=== PATIENT | female | born 1960 | race Caucasian/White ===

== ENCOUNTER 2016-06-29 18:03 | Emergency (ER) | payer OTHER ==
[2016-06-29 18:12] VITALS: BP 133/84
--- NOTE | 2016-06-29 18:20 | ERNOTE ---
ENT HPI Date of Service: 06/29/16 Presenting Symptoms: other - Ear pain Time Seen by Provider: 06/29/16 18:18 Source: patient, RN notes reviewed Exam Limitations: no limitations - Immun/Allergies/Home Medications Immunizations: IMMUNIZATION HX Immunizations Up to Date Yes Allergies/Adverse Reactions: Allergies Allergy/AdvReac Type Severity Reaction Status Date / Time Sulfa (Sulfonamide AdvReac Intermediate Other Verified 06/29/16 18:12 Antibiotics) Home Medications: HOME MEDICATIONS Amoxicillin 875 mg PO BID #20 tablet 06/29/16 [Last Taken Unknown] - History of Present Illness Narrative: 55 y/o female ambulatory to the ED for left ear pain that began earlier this afternoon. She denies any associated symptoms. She has not attempted to take anything for pain. ENT Location: Present: ear (L) Prearrival Treatment: Present: no prearrival treatment Prior Treament: Reports: similar symptoms before. Denies: recently seen Review of Systems - Review of Systems Constitutional: Present: malaise. Absent: fever, chills EYE: Present: no symptoms reported ENT: Present: ear pain. Absent: ear discharge, nose congestion, nasal drainage , sore throat Respiratory: Absent: shortness of breath, cough Cardiology: Present: no symptoms reported Gastrointestinal/Abdominal: Absent: nausea, vomiting Genitourinary: Present: no symptoms reported Musculoskeletal: Absent: muscle pain, neck pain Skin: Absent: rash, lesions Neurological: Absent: headache, dizziness/light-headedness Endocrine: Present: no symptoms reported Hematologic/Lymphatic: Present: no symptoms reported Psych: Present: no symptoms reported - Patient's Past Medical History Patient History - Medical: UTI'S Patient History - Cardiac/Respiratory: No pertinent hx Patient History - Cancer: Cervical, Skin Patient History - Surgical Procedures: Cholecystectomy, Hysterectomy, T & A Patient History - Other: None - Social History Living Situations: home Psych History: No pertinent hx Smoking Status: Former smoker Alcohol Use: none Drug Use: none - Immunizations Immunizations Up to Date: Yes Physical Exam - Physical Exam General Appearance: Present: wd/wn, alert, other - noted to be uncomfortable Eye Exam: Normal inspection: bilateral Ears, Nose, Throat: Present: abnormal TM (L) - bulging, middle ear fluid present. Absent: hearing decreased, abnormal TM (R), nasal congestion, sinus pain/drainage, pharyngeal erythema Neck: Present: normal inspection, nontender, supple. Absent: lymphadenopathy (R ), lymphadenopathy (L) Respiratory: Present: no respiratory distress, normal breath sounds, no accessory muscle use, lungs clear Cardiovascular/Chest: Present: regular rate, rhythm, no murmur Neurological Exam: Present: alert, oriented, normal mood/affect, no motor/ sensory deficits Skin Exam: Present: normal color, warm/dry ED Progress - Vital Signs Patient's Vital Signs:: I have reviewed the patient's vital signs. Vital Signs: Vital Signs 06/29/16 18:05 Temperature 36.8 C Pulse Rate 92 Respiratory 18 Rate Blood Pressure 133/84 O2 Sat by Pulse 97 Oximetry - Progress/Reassessment Chief Complaint: Earache Progress:: Improved Departure Clinical Impression: Otitis media of left ear Qualifiers: Otitis media type: suppurative Chronicity: acute Recurrence: not specified as recurrent Spontaneous tympanic membrane rupture: without spontaneous rupture Qualified Code(s): H66.002 - Acute suppurative otitis media without spontaneous rupture of ear drum, left ear - Departure Disposition: Home self-care Condition: Good Instructions: Otitis Media, Adult, [id number] Additional Instructions: Tylenol and/or ibuprofen for pain Follow up with your doctor if symptoms persist Referrals: Maria Del Carmen Aguilera DO [Primary Care Provider] - Prescriptions: Amoxicillin 875 mg PO BID #20 tablet
[2016-06-29] MEDS ORDERED: KETOROLAC TROMETHAMINE 60 MG/2 ML VIAL IM ONE ×2 (18:33→18:36)
[2016-06-29] MEDS ORDERED: AMOXICILLIN TRIHYDRATE 250 MG CAPSULE PO ONE (18:33)
[2016-06-29] MEDS ORDERED: AMOXICILLIN TRIHYDRATE 250 MG CAPSULE ONE (18:37)
--- OUTSIDE RECORDS SUMMARY | 2016-06-29 19:05 | XMS REPORT | Continuity of Care Document ---
:1960 Author Organization [facility] ([facility]) Address [address] [place] [address] Phone [phone] Care Team Providers Name Role Phone Maria Del Carmen Aguilera Primary Care Provider [phone] Source Comments This disclosure is being made pursuant to the Care Everywhere program, applicable federal and state laws, and may not contain all informaitonavailable regarding this patient.[facility] ([facility]) Active Allergies and Adverse Reactions Allergen Noted Date Severity Reactions Comments Sulfa (Sulfonamide Antibiotics) 06/11/2016 Urticaria (Hives) Current Medications No known medications Active Problems Not on file Most Recent Encounters Date Type Specialty Providers Description 06/28/2016 Hospital Encounter Radiology Chief Comp: Patient Reported Reason For Visit 06/28/2016 Hospital Encounter Radiology Zoraida Trejo MD Dx: Neuropathy Marin Hawkins MD 06/11/2016 Hospital Encounter Radiology Zoraida Trejo MD Chief Comp: Patient Reported Reason For Visit 06/11/2016 Office Visit Neurology Micha Wills MD Dx: B12 deficiency (Primary Dx) Social History Tobacco Use Types Packs/Day Years Used Date Former Smoker Cigarettes Quit: 04/15/1982 Smokeless Tobacco: Never Used Tobacco Cessation:Counseling Given: Yes Comments: Alcohol Use Drinks/Week oz/Week Comments Yes 2 drinks in past 8 months Last Filed Vital Signs Vital Sign Reading Time Taken Blood Pressure 136/77 06/11/2016 12:41 PM PHLEBOTOMY SERVICES TECHNICIAN Pulse 86 06/11/2016 12:41 PM PHLEBOTOMY SERVICES TECHNICIAN Temperature - - Respiratory Rate - - Height 1.626 m (5' 4.02") 06/11/2016 12:41 PM PHLEBOTOMY SERVICES TECHNICIAN Weight 77.7 kg (171 lb 4.8 oz) 06/11/2016 12:41 PM PHLEBOTOMY SERVICES TECHNICIAN Body Mass Index 29.39 06/11/2016 12:41 PM PHLEBOTOMY SERVICES TECHNICIAN Oxygen Saturation 99% 06/11/2016 12:41 PM PHLEBOTOMY SERVICES TECHNICIAN Plan of Care Health Maintenance Due Date Last Done Comments HCV Screening 1960 Hepatitis B Vaccine (1 of 3 - Primary Series) 1962 Tdap Vaccine 1973 Lipid Disorder Screening 1980 MMR Vaccine 1980 Td Vaccine 1980 Cervical Cancer Screening 1992 Mammogram 2002 Colonoscopy 07/12/2012 Influenza Vaccine: Seasonal (#1) 11/14/2015 Results from Last 3 Months MRI SPINE CERVICAL WO CONTRAST ([id number]) (06/28/2016 11:17 AM) Impressions Impression: Mild multilevel degenerative change, most prominent at C6-C7. Narrative Procedure: MRI SPINE CERVICAL WO CONTRAST ([id number]) Indication: History of injury, evaluate for cervical spine stenosis Technique: Multisequence, multiplanar MRI of the cervical spine without IV contrast. Exam was performed using a degenerative joint disease protocol. Comparison: None. Findings: Postsurgical change of anterior spinal fusion at C4-C6. There is normal alignment without evidence of acute fracture or dislocation. Vertebral body heights are well-maintained. Visualized cord is within normal limits. Normal marrow signal. Prevertebral soft tissues are unremarkable. Grossly normal thyroid. Individual disc levels are as follows: C2-C3: No significant disc disease or stenosis. C3-C4: Small posterior disc bulge, without significant central canal stenosis. C4-C5: No significant disc disease or stenosis. C5-C6: No significant disc disease or stenosis. Incidental note of perineural cysts at the bilateral neural foramina. C6-C7: Broad-based posterior disc bulge causing indentation of the thecal sac and mild central canal stenosis. Incidental note of a 4 mm right perineural cyst. C7-T1: No significant disc disease or stenosis. Procedure Note Nicolas, Incoming Imaging Results - SatJun 29, 2016 9:01 AM CDT Procedure: MRI SPINE CERVICAL WO CONTRAST ([id number]) Indication: History of injury, evaluate for cervical spine stenosis Technique: Multisequence, multiplanar MRI of the cervical spine without IV contrast. Exam was performed using a degenerative joint disease protocol. Comparison: None. Findings: Postsurgical change of anterior spinal fusion at C4-C6. There is normal alignment without evidence of acute fracture or dislocation. Vertebral body heights are well-maintained. Visualized cord is within normal limits. Normal marrow signal. Prevertebral soft tissues are unremarkable. Grossly normal thyroid. Individual disc levels are as follows: C2-C3: No significant disc disease or stenosis. C3-C4: Small posterior disc bulge, without significant central canal stenosis. C4-C5: No significant disc disease or stenosis. C5-C6: No significant disc disease or stenosis. Incidental note of perineural cysts at the bilateral neural foramina. C6-C7: Broad-based posterior disc bulge causing indentation of the thecal sac and mild central canal stenosis. Incidental note of a 4 mm right perineural cyst. C7-T1: No significant disc disease or stenosis. IMPRESSION Impression: Mild multilevel degenerative change, most prominent at C6-C7. TOTAL PROTEIN (06/11/2016 2:30 PM) Component Value Range Total Protein 7.4 6.0-8.0 g/dL Specimen Blood SERUM PROTEIN ELECTROPHORESIS (06/11/2016 2:30 PM) Component Value Range SPEP-Total Protein 7.4 6.0-8.0 g/dL SPEP-Albumin 4.3 3.7-5.0 g/dL SPEP-Alpha1 Fraction 0.3 0.3-0.5 g/dL SPEP-Alpha2 Fraction 0.8(H) 0.4-0.6 g/dL SPEP-Beta1 Fraction 0.5 g/dL SPEP-Beta2 Fraction 0.4 g/dL SPEP-Beta Fraction Total 0.9 0.6-0.9 g/dL SPEP-Gamma Fraction 1.2 0.5-1.3 g/dL SPEP-Monoclonal Protein 0.0 g/dL SPEP-Path Interp See TextComment: A monoclonal protein is not identified by serum protein electrophoresis. Domonique Zuñiga M.D., R1 Pathology Resident I have personally reviewed the patient studies and I agree with the above report. Maninder Brewer M.D, Ph.D., Electronics Scale Tester, Clinical Chemistry Laboratory, [facility] Questions can be directed to the Pathology Chemistry resident (pager #[phone]) Specimen Blood HEMOGLOBIN A1C (06/11/2016 2:30 PM) Component Value Range Hemoglobin A1c 5.3Comment: 4.8-6.0 % Glycemic Control Guidelines: Non-diabetic <6% Goal <7% Therapeutic Action >8% Estimated Average Glucose 105Comment: mg/dL The estimated average glucose (eAG) calculated from the HbA1c changed on 02/12.See Laboratory Bulletins in the Department of Pathology Laboratory Services Handbook for a full discussion.Not e that the new calculated glucose will now be lower.The A1c result is unchanged. Specimen Whole Blood THYROID STIMULATING HORMONE (TSH), WITH REFLEX FREE T-4 (06/11/2016 2:30 PM) Component Value Range TSH, Reflex 0.95 0.27-4.20 IU/mL Specimen Blood VITAMIN B12 (06/11/2016 2:30 PM) Component Value Range Vitamin B12 458Comment: 211-946 pg/mL New analytical immunoassay with different reference range instituted 03/10/2013 AT 830AM Normal 211 - 946 pg/mL [id number] - 210 pg/mL Deficient<150pg/mL Specimen Blood EXTERNAL MRI - STORE ONLY (06/11/2016 1:42 PM)
== END 2016-06-29 18:42 | disposition home or self-care (01) ==
LOC: ER 18:03
DX: H66.002 Acute suppurative otitis media without spontaneous rupture of ear drum, left ear (principal); Z85.828 Personal history of other malignant neoplasm of skin; Z85.41 Personal history of malignant neoplasm of cervix uteri

== ENCOUNTER 2016-09-11 10:05 | Observation (INO) | payer OTHER ==
--- NOTE | 2016-09-11 10:30 | ERNOTE ---
Chest Pain/Cardiac HPI Chief Complaint: Chest Pain Source: patient Exam Limitations: no limitations Immunizations: IMMUNIZATION HX Immunizations Up to Date Yes Allergies/Adverse Reactions: Allergies Sulfa (Sulfonamide Antibiotics) Adverse Reaction (Intermediate, Verified 13:28) Other eyes red Home Medications: HOME MEDICATIONS NK [No Home Medication] 09/11/16 [Last Taken Unknown] Narrative: Patient has had intermittent chest pain on and off for about two weeks. The pain is central with no clear correlation to activity, gets worse at night. She usually gets a headache after the chest pain resolved. She had an ablation for SVTs three years ago, doesn't think she had an angiogram before. She has a strong family history of cardiac disease. Her father age 51 from a massive NE, siblings started to have heart disease in their 40's Timing: intermittent Severity/Quality: mild, sharp Location: central Chest Pain Radiation: no radiation Activities at Onset: none Modifying Factors - Improves: Present: nothing Modifying Factors - Worsens: Present: nothing Nitro Today/Relief: no nitro taken today Aspirin Treatment Today: no aspirin today Review of Systems - Review of Systems Constitutional: Absent: recent illness, fever, chills EYE: Absent: double vision ENT: Absent: sore throat Respiratory: Absent: shortness of breath, cough Cardiology: Present: See HPI Gastrointestinal/Abdominal: Absent: nausea, vomiting, abdominal pain Genitourinary: Present: no symptoms reported Neurological: Present: See HPI, headache - Patient's Past Medical History Patient History - Medical: UTI'S Patient History - Cardiac/Respiratory: No pertinent hx Patient History - Cancer: Cervical, Chemotherapy history, Skin, Surgical Treatment Patient History - Surgical Procedures: Cholecystectomy, Hysterectomy, T & A, Other Patient History - Other: None - Family History Mother Family History - Medical: Family History - Cardiac/Respiratory: Aneurysm Family History - Cancer: Pancreatic Father Family History - Medical: Family History - Cardiac/Respiratory: Myocardial Infarction Sister Family History - Cancer: Cervical, Colon, Thyroid - Social History Living Situations: home Psych History: No pertinent hx Alcohol Use: none Drug Use: none - Immunizations Immunizations Up to Date: Yes Physical Exam - Physical Exam General Appearance: Present: wd/wn, alert, no apparent distress, anxious Respiratory: Present: no respiratory distress, normal breath sounds, no accessory muscle use, chest tenderness - parasternal bilateral Cardiovascular/Chest: Present: regular rate, rhythm, no murmur Gastrointestinal/Abdominal: Present: normal bowel sounds, nontender, nondistended, soft Extremity Exam: Present: no edema Neurological Exam: Present: alert, oriented, normal mood/affect Skin Exam: Present: normal color, warm/dry ED Progress - Results and Orders Patient's Lab Results:: I have reviewed the patient's lab results. - Vital Signs Patient's Vital Signs:: I have reviewed the patient's vital signs. Vital Signs: Vital Signs 09/11/16 09/11/16 10:21 10:25 Temperature 36.4 C L Pulse Rate 75 81 Respiratory 15 Rate Blood Pressure 132/65 - EKG EKG: NSR, other - no acute changes EKG read: Interp. by me - X-Ray X-Ray #1 X-Ray: chest - no acute changes Interpretation: Reviewed by me - Progress/Reassessment Chief Complaint: Chest Pain Progress Note-Subjective: 09/11/16 11:41 pain briefly better after nitro, getting worse again, headache worse after nitrp explained test results and limits of test to rule out significant CAD 09/11/16 12:55 patient still gets intermittent pain without any clear correlation, pains seem rather atypical, agrees to get admitted 09/11/16 13:[address] Johnston, jinaay to admit for observation Departure - Departure Clinical Impression: Chest pain Qualifiers: Chest pain type: unspecified Qualified Code(s): R07.9 - Chest pain, unspecified Disposition: [facility] Condition: Good
[2016-09-11] MEDS ORDERED: ACETAMINOPHEN 325 MG TABLET PO ONE (10:41)
[2016-09-11] MEDS ORDERED: ASPIRIN 81 MG TAB.CHEW PO ONE (10:41)
[2016-09-11] MEDS ORDERED: NITROGLYCERIN 0.4 MG/TAB BTL SL ONE ×2 (10:41→11:28)
[2016-09-11 10:43] LABS: Hematocrit 39.4 % (37.0-47.0); Hemoglobin 13.5 gm/dL (12.5-16.0); Mean Cell Volume 88.5 fl (78-100); Mean Corpuscular Hemoglobin 30.3 pg (27-31); Mean Corpuscular Hgb Conc 34.3 g/dl (32-36); Mean Platelet Volume 9.5 fl (6.0-9.5); Neutrophil # 2.4 K/mm3 (1.3-6.0); Neutrophil % 48.7 % (42-75.0); Platelet Count 313 K/mm3 (150-450); Red Blood Count 4.45 M/mm3 (4.2-5.4); White Blood Count 4.9 K/mm3 (4.0-10.5)
[2016-09-11] MEDS ORDERED: ACETAMINOPHEN 325 MG TABLET ONE (10:46)
[2016-09-11] MEDS ORDERED: ASPIRIN 81 MG TAB.CHEW ONE (10:46)
[2016-09-11 10:55] LABS: INR 1.01 INR (0.90-1.10); Partial Thrombolplastin Time 30.3 Seconds (24-32); Prothrombin Time (Patient) 10.5 Seconds (9.4-11.4)
[2016-09-11 11:01] LABS: ALT 19 U/L (19-67); AST 18 U/L (0-48); Albumin * 3.6 gm/dl (3.4-5.0); Alkaline Phosphatase * 73 U/L (50-170); Anion Gap 14.1 mmol/L (6.8-13.8); BUN/Creatinine Ratio 9.3 (9.0-21.6); Bilirubin, Total 0.3 mg/dL (0.0-1.1); Blood Urea Nitrogen 8 mg/dL (3-23); Ca. Corrected For Albumin 8.9 mg/dL (8.4-10.2); Calcium * 8.9 mg/dL (7.9-10.9); Carbon Dioxide 26.5 mmol/L (24-32.6); Chloride 106 mmol/L (97-106); Glucose * 104 mg/dL (70-110); Potassium 3.6 mmol/L (3.4-4.6); Sodium 143 mmol/L (132-142); Total Protein 7.4 gm/dL (6.2-8.2); Troponin I Less than 0.017 ng/ml (0.00-0.10)
--- OUTSIDE RECORDS SUMMARY | 2016-09-11 11:30 | XMS REPORT | Continuity of Care Document ---
:1960 Author Organization [facility] ([facility]) Address [address] [place] [address] Phone [phone] Care Team Providers Name Role Phone Maria Del Carmen Aguilera Primary Care Provider [phone] Source Comments This disclosure is being made pursuant to the Care Everywhere program, applicable federal and state laws, and may not contain all informaitonavailable regarding this patient.[facility] ([facility]) Active Allergies and Adverse Reactions Allergen Noted Date Severity Reactions Comments Sulfa (Sulfonamide Antibiotics) 06/11/2016 Urticaria (Hives) Current Medications No known medications Active Problems Not on file Most Recent Encounters Date Type Specialty Providers Description 08/02/2016 Hospital Encounter Neurology Bhavesh Manzanares, PhD Chief Comp: Patient Reported Reason For Visit 06/28/2016 Hospital Encounter Radiology Chief Comp: Patient Reported Reason For Visit 06/28/2016 Hospital Encounter Radiology Zoraida Trejo MD Dx: Neuropathy Marin Hawkins MD Social History Tobacco Use Types Packs/Day Years Used Date Former Smoker Cigarettes Quit: 04/15/1982 Smokeless Tobacco: Never Used Tobacco Cessation:Counseling Given: Yes Comments: Alcohol Use Drinks/Week oz/Week Comments Yes 2 drinks in past 8 months Last Filed Vital Signs Vital Sign Reading Time Taken Blood Pressure 136/77 06/11/2016 12:41 PM SALES FLOOR ASSOCIATE Pulse 86 06/11/2016 12:41 PM SALES FLOOR ASSOCIATE Temperature - - Respiratory Rate - - Height 1.626 m (5' 4.02") 06/11/2016 12:41 PM SALES FLOOR ASSOCIATE Weight 77.7 kg (171 lb 4.8 oz) 06/11/2016 12:41 PM SALES FLOOR ASSOCIATE Body Mass Index 29.39 06/11/2016 12:41 PM SALES FLOOR ASSOCIATE Oxygen Saturation 99% 06/11/2016 12:41 PM SALES FLOOR ASSOCIATE Plan of Care Date Type Specialty Providers Description 09/18/2016 Appointment Neurology Micha Wills MD Chief Comp: Patient [address] [place] [address] [phone] (Fax) Health Maintenance Due Date Last Done Comments HCV Screening 1960 Hepatitis B Vaccine (1 of 3 - Primary Series) 1962 Tdap Vaccine 1973 Lipid Disorder Screening 1980 MMR Vaccine 1980 Td Vaccine 1980 Cervical Cancer Screening 1992 Mammogram 2002 Colonoscopy 07/12/2012 Influenza Vaccine: Seasonal (Season Ended) 2016 Results from Last 3 Months MRI SPINE CERVICAL WO CONTRAST ([id number]) (06/28/2016 11:17 AM) Impressions Impression: Mild multilevel degenerative change, most prominent at C6-C7. Narrative Procedure: MRI SPINE CERVICAL WO CONTRAST ([id number]) Indication: History of injury, evaluate for cervical [...] CDT Procedure: MRI SPINE CERVICAL WO CONTRAST ([id number]) Indication: History of injury, evaluate for cervical [...]
[2016-09-11] MEDS ORDERED: MORPHINE SULFATE 4 MG/ML SYRG IV ONE (11:40)
[2016-09-11] MEDS ORDERED: ONDANSETRON HCL/PF 2 MG/ML VIAL IV ONE (11:40)
[2016-09-11] MEDS ORDERED: MORPHINE SULFATE 4 MG/ML SYRG ONE (11:42)
[2016-09-11] MEDS ORDERED: ONDANSETRON HCL/PF 2 MG/ML VIAL ONE (11:42)
--- OUTSIDE RECORDS SUMMARY | 2016-09-11 13:13 | XMS REPORT | Continuity of Care Document ---
:1960 Author Organization [facility] ([facility]) Address [address] [place] [address] Phone [phone] Care Team Providers Name Role Phone Maria Del Carmen Aguilera Primary Care Provider [phone] Source Comments This disclosure is being made pursuant to the Care Everywhere program, applicable federal and state laws, and may not contain all informaitonavailable regarding this patient.[facility] ([facility]) Active Allergies and Adverse Reactions Allergen Noted Date Severity Reactions Comments Sulfa (Sulfonamide Antibiotics) 06/11/2016 Urticaria (Hives) Current Medications No known medications Active Problems Not on file Most Recent Encounters Date Type Specialty Providers Description 08/02/2016 Hospital Encounter Neurology Bhavesh Mnazanares, PhD Chief Comp: Patient Reported Reason For [...] Taken Blood Pressure 136/77 06/11/2016 12:41 PM CRITICAL SYSTEMS TECHNICIAN Pulse 86 06/11/2016 12:41 PM CRITICAL SYSTEMS TECHNICIAN Temperature - - Respiratory Rate - - Height 1.626 m (5' 4.02") 06/11/2016 12:41 PM CRITICAL SYSTEMS TECHNICIAN Weight 77.7 kg (171 lb 4.8 oz) 06/11/2016 12:41 PM CRITICAL SYSTEMS TECHNICIAN Body Mass Index 29.39 06/11/2016 12:41 PM CRITICAL SYSTEMS TECHNICIAN Oxygen Saturation 99% 06/11/2016 12:41 PM CRITICAL SYSTEMS TECHNICIAN Plan of Care Date Type Specialty Providers Description 09/18/2016 Appointment Neurology Micha Wills MD Chief Comp: Patient [address] Reported Reason For [place] [address] [phone] (Fax) Health Maintenance Due Date Last Done Comments HCV Screening 1960 Hepatitis B Vaccine (1 of 3 - Primary Series) 1962 Tdap Vaccine 1973 Lipid Disorder Screening 1980 MMR Vaccine 1980 Td Vaccine 1980 Cervical Cancer Screening 1992 Mammogram 2002 Colonoscopy 07/12/2012 Influenza Vaccine: Seasonal (Season Ended) 2016 Results from Last 3 Months MRI SPINE CERVICAL WO CONTRAST ([id number]) (06/28/2016 11:17 AM) Impressions Impression: Mild multilevel degenerative change, most prominent at C6-C7. Narrative Procedure: MRI SPINE CERVICAL WO CONTRAST ([id number]) Indication: History of injury, evaluate for cervical [...] CDT Procedure: MRI SPINE CERVICAL WO CONTRAST ([id number]) Indication: History of injury, evaluate for cervical [...]
[2016-09-11] MEDS ORDERED: ATORVASTATIN CALCIUM 40 MG TABLET ONE (13:14)
[2016-09-11] MEDS ORDERED: ATORVASTATIN CALCIUM 40 MG TABLET PO STA (13:14)
[2016-09-11] MEDS: ACETAMINOPHEN 325 MG TABLET PO PRN ×2 (14:46→21:13)
[2016-09-11 15:24] LABS: CK Total * 78 U/L (0-259); CKMB 0.5 ng/mL (0.0-9.0); Troponin I Less than 0.017 ng/ml (0.00-0.10)
--- NOTE | 2016-09-11 15:43 | HP ---
Chief Complaint - Chief Complaint Date of Service: 09/11/16 Time of Service: 14:30 Chief Complaint: Chest pain, unable to sleep secondary to worsening of chronic pain History of Present Illness: The patient is a 56-year-old female who presented to the emergency department with complaints of chest pain, worsening chronic pain in multiple joints and in her back and inability to sleep secondary to the pain. The patient states that her joint pain and back pain is the same as it always is other than it just feels like it's a little bit worse than baseline. The patient states she has been having intermittent chest pain for the past few weeks. She states the pain is actually worse at rest and she really only notices the chest pain at night when she is laying in bed. She denies any associated nausea or vomiting. She does admit to feeling hot and sweaty when she has the chest pain. She also admits to having the sensation of heartburn with the chest pain however she states that she does not think the chest pain is from her burn. The patient has a long-standing history of chronic pain which is likely myofascial in origin. She also has a history of headaches and is following with neurology and she actually states that she is scheduled to see them next week. The patient states that she had an ablation procedure for SVT in September 2013 and she is worried that it may be something related to dizziness that is causing the chest pain. - Patient's Past Medical History Patient History - Medical: Dementia, UTI'S Patient History - Cardiac/Respiratory: Other Patient History - Cancer: Brain, Cervical, Chemotherapy history, Skin, Surgical Treatment Patient History - Surgical Procedures: Cholecystectomy, Hysterectomy, T & A, Other Patient History - Other: None LMP (females 10-50): Menopausal - Family History Mother Family History - Medical: Family History - Cardiac/Respiratory: Aneurysm Family History - Cancer: Pancreatic Father Family History - Medical: Family History - Cardiac/Respiratory: Myocardial Infarction Sister Family History - Cancer: Cervical, Colon, Thyroid - Social History Living Situations: home Psych History: Hx of Anxiety, Hx of Depression Smoking Status: Never smoker Have you smoked in the past 12 months: No Do you dip or chew tobacco: No Alcohol Use: none Drug Use: none - Immunizations Immunizations Up to Date: Yes Review Of Systems (GEN) - Review of Systems Generalized/Overall Review: Absent: Chills, Fever EENTM: Present: No Symptoms Reported Respiratory: Present: No Symptoms Reported Cardiac: Present: Chest Pain. Absent: Edema, Syncope Abdominal: Present: No Symptoms Reported. Absent: Nausea, Vomiting Genitourinary: Present: No Symptoms Reported Musculoskeletal: Present: Joint Pain, Back Pain, Muscle Pain Neurological: Present: Headache Skin: Present: No Symptoms Reported Endocrine: Present: No Symptoms Reported Misc: All systems neg except as marked Allergies/Adverse Reactions: Allergies Allergy/AdvReac Type Severity Reaction Status Date / Time Sulfa (Sulfonamide AdvReac Intermediate Other Verified 09/11/16 13:28 Antibiotics) Home Medications: HOME MEDICATIONS NK [No Home Medication] 09/11/16 [Last Taken Unknown] Exam - Exam Vital Signs: Vital Signs - Last Taken Temp 36.2 C L 09/11/16 13:31 Pulse 60 09/11/16 13:31 Resp 18 09/11/16 13:31 BP 125/66 09/11/16 13:31 Pulse Ox 98 09/11/16 13:31 Constitutional: Present: Alert, Oriented x3, Cooperative, Well developed, Well nourished, No distress ENT Exam: Present: hearing grossly normal, moist mucous membranes Eye Exam: bilateral eye: normal inspection, EOMI Neck: Present: non-tender, trachea midline Respiratory: Present: lungs clear, normal breath sounds, no respiratory distress , no accessory muscle use, other - Tenderness with palpation over sternum and costocondral junction lateral to the sternum bilaterally Cardiovascular/Chest: Present: regular rate, rhythm, no edema, no murmur, chest tender - Tenderness with palpation over sternum and costocondral junction lateral to the sternum bilaterally Abdomen: Present: Normal bowel sounds, soft, nontender, nondistended Extremity: Present: normal inspection, no pedal edema Skin Exam: Present: normal color, warm/dry, no cyanosis Neurologic: Present: no motor/sensory deficits, alert, normal mood/affect, oriented x 3 Appearance: Present: appropriate appearance, appropriate insight, neat, no memory impairment Eye contact: Present: cooperative, good eye contact, normal speech Thoughts: Present: normal thought pattern, no apparent hallucination Diagnostic Studies: Laboratory Results WBC 4.9 K/mm3 (4.0-10.5) 09/11/16 10:30 RBC 4.45 M/mm3 (4.2-5.4) 09/11/16 10:30 Hgb 13.5 gm/dL (12.5-16.0) 09/11/16 10:30 Hct 39.4 % (37.0-47.0) 09/11/16 10:30 MCV 88.5 fl (78-100) 09/11/16 10:30 MCH 30.3 pg (27-31) 09/11/16 10:30 MCHC 34.3 g/dl (32-36) 09/11/16 10:30 RDW 12.0 % (11.5-14.0) 09/11/16 10:30 Plt Count 313 K/mm3 (150-450) 09/11/16 10:30 MPV 9.5 fl (6.0-9.5) 09/11/16 10:30 Immature Gran % (Auto) 0.20 % (0.001-0.429) 09/11/16 10:30 Immature Gran # (Auto) 0.01 K/mm3 (0.000-0.0310) 09/11/16 10:30 Neutrophils % 48.7 % (42-75.0) 09/11/16 10:30 Lymphocytes % 37.1 % (20-51) 09/11/16 10:30 Monocytes % 7.1 % (0.0-9) 09/11/16 10:30 Eosinophils % 5.9 % (0.0-3.0) H 09/11/16 10:30 Basophils % 1.0 % (0.0-1.0) 09/11/16 10:30 Nucleated RBC % 0.0 k/mm3 (0-1) 09/11/16 10:30 Neutrophils # 2.4 K/mm3 (1.3-6.0) 09/11/16 10:30 Lymphocytes # 1.8 k/mm3 (1.5-3.5) 09/11/16 10:30 Monocytes # 0.4 k/mm3 (0.0-1.0) 09/11/16 10:30 Eosinophils # 0.3 k/mm3 (0.0-0.7) 09/11/16 10:30 Absolute Basophils 0.1 k/mm3 (0.0-0.1) 09/11/16 10:30 PT 10.5 Seconds (9.4-11.4) 09/11/16 10:30 INR (Anticoag Therapy) 1.01 INR (0.90-1.10) 09/11/16 10:30 PTT (Jerardo) 30.3 Seconds (24-32) 09/11/16 10:30 D-Dimer 0.40 mg/L (0.19-0.49) 09/11/16 10:30 Sodium 143 mmol/L (132-142) H 09/11/16 10:30 Plasma Sodium 143 mmol/L (130-142) H 09/11/16 10:30 Potassium 3.6 mmol/L (3.4-4.6) 09/11/16 10:30 Chloride 106 mmol/L (97-106) 09/11/16 10:30 Carbon Dioxide 26.5 mmol/L (24-32.6) 09/11/16 10:30 Anion Gap 14.1 mmol/L (6.8-13.8) H 09/11/16 10:30 BUN 8 mg/dL (3-23) 09/11/16 10:30 Creatinine 0.86 mg/dL (0.4-1.4) 09/11/16 10:30 Est GFR (Non-Af Amer) 73 mL/min (60-130) D 09/11/16 10:30 BUN/Creatinine Ratio 9.3 (9.0-21.6) 09/11/16 10:30 Random Glucose 104 mg/dL (70-110) 09/11/16 10:30 Calcium 8.9 mg/dL (7.9-10.9) 09/11/16 10:30 Calcium Adj for Albumin 8.9 mg/dL (8.4-10.2) 09/11/16 10:30 Total Bilirubin 0.3 mg/dL (0.0-1.1) 09/11/16 10:30 AST 18 U/L (0-48) 09/11/16 10:30 ALT 19 U/L (19-67) 09/11/16 10:30 Alkaline Phosphatase 73 U/L (50-170) 09/11/16 10:30 Creatine Kinase 78 U/L (0-259) 09/11/16 14:59 CK-MB (CK-2) 0.5 ng/mL (0.0-9.0) 09/11/16 14:59 CK-MB (CK-2) Rel Index 0.6 (0.0-3.6) 09/11/16 14:59 Troponin I Less than 0.017 ng/ml (0.00-0.10) 09/11/16 14:59 Total Protein 7.4 gm/dL (6.2-8.2) 09/11/16 10:30 Albumin 3.6 gm/dl (3.4-5.0) 09/11/16 10:30 Assessment/Plan - Narrative Narrative: Chest pain is most likely musculoskeletal/myofascial in nature. Given the fact that the chest pain has been present for multiple days and cardiac enzymes are within normal limits 2 and EKG is unremarkable, is very unlikely that her chest pain is related to ACS. However, given her history of SVT requiring ablation, we will keep the patient in the hospital overnight and monitor her on telemetry. Check lipid panel in a.m. I recommended that the patient start taking 81 mg of aspirin daily. She says that she is actually already supposed to be on this medication but she often forgets to take it. I encouraged her to find a method that works for her such as using a pillbox to make sure that she takes her daily medications as prescribed. Use Tylenol as needed for pain. Consider outpatient referral to cardiology and/or outpatient cardiac stress test and/or outpatient Holter monitor. I also discussed with the patient that her symptoms may be GI in nature and may be secondary to GERD versus esophageal spasm. The patient does not feel like this is the cause of the chest pain and is not interested in starting on a PPI at this time because she states she has been on this in the past. Continue to monitor clinical course and I would expect the patient to be ready for discharge in the a.m. - Assessment/Plan (1) Chest pain Problem: Acute Qualifiers: Chest pain type: unspecified Qualified Code(s): R07.9 - Chest pain, unspecified
[2016-09-12 06:25] LABS: ALT 21 U/L (19-67); AST 20 U/L (0-48); Albumin * 3.2 gm/dl (3.4-5.0); Alkaline Phosphatase * 57 U/L (50-170); Anion Gap 9.8 mmol/L (6.8-13.8); BUN/Creatinine Ratio 10.3 (9.0-21.6); Bilirubin, Total 0.4 mg/dL (0.0-1.1); Blood Urea Nitrogen 9 mg/dL (3-23); CK Total * 58 U/L (0-259); Ca. Corrected For Albumin 9.3 mg/dL (8.4-10.2); Carbon Dioxide 30.2 mmol/L (24-32.6); Chloride 108 mmol/L (97-106); Chol/HDL Risk Ratio 2.8 mg/dL (3.3-4.4); Cholesterol 155 mg/dL (0-200); Glucose * 94 mg/dL (70-110); HDL Cholesterol 54 mg/dL (40-60); LDL Cholesterol 73 mg/dL (70-130); Sodium 144 mmol/L (132-142); Total Protein 6.9 gm/dL (6.2-8.2); Triglycerides 140 mg/dL (30-200); Troponin I Less than 0.017 ng/ml (0.00-0.10); VLDL Cholesterol 28 mg/dL (5-40)
[2016-09-12] MEDS ORDERED: ASPIRIN 81 MG TABLET.DR PO SCH (09:00)
--- NOTE | 2016-09-12 09:13 | DS ---
(1) Chest pain Problem: Acute Qualifiers: Chest pain type: unspecified Qualified Code(s): R07.9 - Chest pain, unspecified Description of Stay: ADMISSION DATE: 09/11/2016 DISCHARGE DATE: 09/12/2016 ADMISSION HPI: The patient is a 56-year-old female who presented to the emergency department with complaints of chest pain, worsening chronic pain in multiple joints and in her back and inability to sleep secondary to the pain. The patient states that her joint pain and back pain is the same as it always is other than it just feels like it's a little bit worse than baseline. The patient states she has been having intermittent chest pain for the past few weeks. She states the pain is actually worse at rest and she really only notices the chest pain at night when she is laying in bed. She denies any associated nausea or vomiting. She does admit to feeling hot and sweaty when she has the chest pain. She also admits to having the sensation of heartburn with the chest pain however she states that she does not think the chest pain is from her burn. The patient has a long-standing history of chronic pain which is likely myofascial in origin. She also has a history of headaches and is following with neurology and she actually states that she is scheduled to see them next week. The patient states that she had an ablation procedure for SVT in September 2013 and she is worried that it may be something related to dizziness that is causing the chest pain. HOSPITAL COURSE: Chest pain is most likely musculoskeletal/myofascial in nature. Given the fact that the chest pain has been present for multiple days and cardiac enzymes are within normal limits 2 and EKG is unremarkable, is very unlikely that her chest pain is related to ACS. She was monitored on telemetry overnight and cardiac enzymes were repeated the following AM. Telemetry was unremarkable and her enzymes were within normal limits. I recommended that the patient start taking 81 mg of aspirin daily. She says that she is actually already supposed to be on this medication but she often forgets to take it. I encouraged her to find a method that works for her such as using a pillbox to make sure that she takes her daily medications as prescribed. Consider outpatient referral to cardiology and/or outpatient cardiac stress test and/or outpatient Holter monitor. I also discussed with the patient that her symptoms may be GI in nature and may be secondary to GERD versus esophageal spasm. The patient does not feel like this is the cause of the chest pain and is not interested in starting on a PPI at this time because she states she has been on this in the past. The patient had an uneventful admission and was discharged home in stable condition and instructed to follow-up with her PCP within 1 week. FOLLOW-UP APPOINTMENTS: PCP within 1 week. Will defer to PCP as to whether or not they feel outpatient referral to cardiology and/or outpatient cardiac stress test and/or outpatient Holter monitor is warranted. NEW OR CHANGED MEDICATIONS: Aspirin 81mg daily DISCONTINUED MEDICATIONS: None RADIOLOGY: CXR on 09/11/2016: No focal acute cardiopulmonary finding. Hyperinflated lung volumes, stable. No consolidation or mass. Stable calcified right upper lobe granuloma. No pneumothorax or pleural fluid collections. Cardiac and mediastinal silhouettes are normal. Trachea is in normal position. Bones show degenerative changes of the spine. Procedures Performed: none Results and Findings: Laboratory Tests 09/11/16 09/11/16 09/11/16 10:30 10:30 14:59 D-Dimer 0.40 Total Bilirubin AST ALT Alkaline Phosphatase Creatine Kinase 78 CK-MB (CK-2) 0.5 CK-MB (CK-2) Rel Index 0.6 Troponin I Less than 0.017 Less than 0.017 Triglycerides Cholesterol LDL Cholesterol VLDL Cholesterol HDL Cholesterol Cholesterol/HDL Ratio 09/12/16 05:53 D-Dimer Total Bilirubin 0.4 AST 20 ALT 21 Alkaline Phosphatase 57 Creatine Kinase 58 CK-MB (CK-2) Less than 0.5 CK-MB (CK-2) Rel Index 0.9 Troponin I Less than 0.017 Triglycerides 140 Cholesterol 155 LDL Cholesterol 73 VLDL Cholesterol 28 HDL Cholesterol 54 Cholesterol/HDL Ratio 2.8 L Discharge Disposition: Home self care Disposition: Home self-care Condition: Stable Discharge Activity: Activity as tolerated Discharge Diet: General/regular food, Resume usual diet Referrals: Maria Del Carmen Aguilera DO [Primary Care Provider] - Problem Oriented Discharge Instructions to Patient/Family: Nonspecific Chest Pain, [id number] Additional Patient Instructions (free text): Follow-up with PCP within 1 [address] Follow up [address] Aguilera 09/18 at 1:00. Complete Home Medications List: Complete Home Medication List: Aspirin [Aspirin Enteric Coated] 81 mg PO DAILY tablet. 09/12/16
[2016-09-12 10:46] VITALS: BP 120/62
== END 2016-09-12 11:52 | disposition home or self-care (01) ==
LOC: ER 10:05 → MS 13:09
PROVIDERS: ADMIT Internal Medicine; ATTEND Internal Medicine
DX: R07.9 Chest pain, unspecified (principal)
CPT/HCPCS: 36415; 71020; 80053; 80061; 82550; 82553; 84484; 85025; 85379; 85610; 85730; 93005; 96374; 96375; 99284; G0378; J2405

== ENCOUNTER 2017-08-22 17:22 | Observation (INO) ==
[2017-08-22] MEDS ORDERED: ASPIRIN 81 MG TAB.CHEW PO ONE ×2 (17:29→20:34)
[2017-08-22] MEDS ORDERED: NITROGLYCERIN 0.4 MG/TAB BTL SL PRN (17:29)
[2017-08-22] MEDS ORDERED: NORMAL SALINE 1,000 ML IV ONE (17:31)
[2017-08-22 17:45] LABS: Hematocrit 37.2 % (37.0-47.0); Hemoglobin 12.8 gm/dL (12.5-16.0); Mean Cell Volume 90.5 fl (78-100); Mean Corpuscular Hemoglobin 31.1 pg (27-31); Mean Corpuscular Hgb Conc 34.4 g/dl (32-36); Mean Platelet Volume 9.4 fl (6.0-9.5); Neutrophil # 3.2 K/mm3 (1.3-6.0); Neutrophil % 45.7 % (42-75.0); Platelet Count 321 K/mm3 (150-450); Red Blood Count 4.11 M/mm3 (4.2-5.4); Red Cell Distribution Width 12.4 % (11.5-14.0); White Blood Count 7.1 K/mm3 (4.0-10.5)
--- NOTE | 2017-08-22 17:48 | ERNOTE ---
Chest Pain/Cardiac HPI Date of Service: 08/22/17 Time Seen by Provider: 08/22/17 17:25 Source: patient Immunizations: IMMUNIZATION HX Immunizations Up to Date Yes Allergies/Adverse Reactions: Allergies Sulfa (Sulfonamide Antibiotics) Adverse Reaction (Intermediate, Verified 17:32) Other eyes red Home Medications: HOME MEDICATIONS Aspirin [Aspirin Enteric Coated] 81 mg PO DAILY tablet. 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 Patient states that about 15 minutes ago she started developing left-sided chest pain and a headache. Patient states that she took [address] him straight to the emergency room. Patient also states that she had an ablation for SVT in June of last year. Date (Duration): 08/22/17 Severity/Quality: aching, tightness Location: shoulder, left chest Aspirin Treatment Today: 81 mg x 2, provided at home, provided by ED Associated Symptoms: Present: headache Prior Chest Pain/Cardiac Workup: Reports: prior chest pain, other Review of Systems - Review of Systems Constitutional: Present: See HPI EYE: Present: no symptoms reported ENT: Present: no symptoms reported Respiratory: Present: no symptoms reported Cardiology: Present: See HPI, chest pain Gastrointestinal/Abdominal: Present: no symptoms reported Genitourinary: Present: no symptoms reported Musculoskeletal: Present: no symptoms reported Skin: Present: no symptoms reported Neurological: Present: no symptoms reported Endocrine: Present: no symptoms reported Hematologic/Lymphatic: Present: no symptoms reported Psych: Present: no symptoms reported All Other Systems: All systems neg except as marked - Patient's Past Medical History Patient History - Medical: UTI'S Patient History - Cardiac/Respiratory: No pertinent hx Patient History - Cancer: Cervical, Chemotherapy history, Skin, Surgical Treatment Patient History - Surgical Procedures: Cholecystectomy, Hysterectomy, T & A, Other Patient History - Other: None LMP (females 10-50): other - Family History Mother Family History - Medical: Family History - Cardiac/Respiratory: Aneurysm Family History - Cancer: Pancreatic Father Family History - Medical: Family History - Cardiac/Respiratory: Myocardial Infarction Sister Family History - Cancer: Cervical, Colon, Thyroid - Social History Living Situations: home Psych History: No pertinent hx Smoking Status: Never smoker Alcohol Use: occasionally - Immunizations Immunizations Up to Date: Yes Physical Exam - Physical Exam Narrative: Complains of left shoulder pain with a headache,left shoulder/trapezius tender to touch. General Appearance: Present: wd/wn, alert, no apparent distress Head Exam: Present: normal inspection, no evidence of injury Eye Exam: Normal inspection: bilateral, PERRL: bilateral, EOMI: bilateral Ears, Nose, Throat: Present: normal ENT inspection, normal pharynx Neck: Present: normal inspection, nontender Respiratory: Present: no respiratory distress, normal breath sounds, no accessory muscle use, chest nontender, lungs clear Cardiovascular/Chest: Present: regular rate, rhythm, no murmur, normal peripheral pulses Gastrointestinal/Abdominal: Present: normal bowel sounds, nontender, nondistended, soft, no organomegaly Back Exam: Present: normal inspection, normal range of motion, no CVA tenderness , no vertebral tenderness Extremity Exam: Present: normal inspection, non-tender, normal range of motion, no edema Neurological Exam: Present: alert, oriented, normal mood/affect, no motor/ sensory deficits Skin Exam: Present: normal color, warm/dry Lymphatic Exam: Present: no adenopathy ED Progress - Results and Orders Patient's Lab Results:: I have reviewed the patient's lab results. - Vital Signs Patient's Vital Signs:: I have reviewed the patient's vital signs. Vital Signs: Vital Signs 08/22/17 17:28 Temperature 36.6 C Pulse Rate 79 Respiratory 17 Rate Blood Pressure 149/77 - EKG EKG: NSR EKG Comments: interp by ED ATTENDING - X-Ray X-Ray #1 X-Ray: chest Interpretation: Reviewed by me X-ray Comments: NO ACUTE FINDINGS, INTERP BY ED ATTENDING Plan - Plan Plan: PATIENT TO BE ADMITTED FOR CP R/O R/T HER HISTORY OF SVT/ABLATIONS. LAST ABLATION WAS 06/2016 Departure Clinical Impression: Chest pain Qualifiers: Chest pain type: unspecified Qualified Code(s): R07.9 - Chest pain, unspecified - Departure Disposition: Still a patient Condition: Stable
[2017-08-22 17:57] LABS: Prothrombin Time (Patient) 10.1 Seconds (9.0-11.0)
[2017-08-22 18:00] LABS: INR 1.01 INR (0.90-1.10); Partial Thrombolplastin Time 28.2 Seconds (24-32)
[2017-08-22 18:01] LABS: ALT 20 U/L (19-67); AST 17 U/L (0-48); Albumin * 3.6 gm/dl (3.4-5.0); Alkaline Phosphatase * 70 U/L (50-170); Anion Gap 14.3 mmol/L (6.8-13.8); BUN/Creatinine Ratio 17.9 (9.0-21.6); Bilirubin, Total 0.3 mg/dL (0.0-1.1); Blood Urea Nitrogen 14 mg/dL (3-23); Ca. Corrected For Albumin 8.9 mg/dL (8.4-10.2); Calcium * 8.9 mg/dL (7.9-10.9); Carbon Dioxide 24.4 mmol/L (24-32.6); Chloride 102 mmol/L (97-106); Glucose * 101 mg/dL (70-110); Potassium 3.7 mmol/L (3.4-4.6); Sodium 137 mmol/L (132-142); Total Protein 7.5 gm/dL (6.2-8.2); Troponin I Less than 0.017 ng/ml (0.00-0.10)
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
[2017-08-22] MEDS ORDERED: ACETAMINOPHEN 500 MG TABLET PO PRN (20:47)
[2017-08-22] MEDS ORDERED: PANTOPRAZOLE SODIUM 40 MG TABLET.EC PO SCH (21:00)
[2017-08-23 04:36] LABS: Chol/HDL Risk Ratio 2.8 mg/dL (3.3-4.4); Cholesterol 170 mg/dL (0-200); HDL Cholesterol 60 mg/dL (40-60); LDL Cholesterol 88 mg/dL (70-130); Triglycerides 109 mg/dL (30-200); Troponin I Less than 0.017 ng/ml (0.00-0.10); VLDL Cholesterol 22 mg/dL (5-40)
--- NOTE | 2017-08-23 05:55 | DS ---
(1) Chest pain Problem: Resolved QualifierTitle: Chest pain type: unspecified Qualified Code(s): R07.9 - Chest pain, unspecified (2) SVT (supraventricular tachycardia) Problem: Chronic (3) Headache Problem: Resolved QualifierTitle: Headache type: tension-type (4) Costal chondritis Problem: Acute Description of Stay: Date of admission 08/22/2017 Date of discharge 08/23/2017 Discharge Summary Mrs. Lombardo a 57 years old female adm to the hospital with reports of chest pain and arm pain radiating from back. Pt stated she has been having debilitating chest pain x1 week. She have had history of chest pain in the past non cardiac. however she had stress test which qas negative and cardiac cath which shown clear arteries. Pt have a stressful job and going through a divorce and she is worried about her finances which have brought on undue stress. During this adm she remains medically stable, cardiac markers were negative and remains in NSR. Chest pain was only reproducible with palpitation, she had a slight headache that was resolved with Tylenol.The pain pt is having is more muscular-skeletal, she denies GI s/s and stated she have used PPI in the past. Will continue with Aspirin 81mg daily while at home. Will use Mobic 7.5mg BID PRN for discomfort. No statin at this time, pt can follow up with PCP who will determine if she need a repeat stress test. Diagnosis: CXR: No acute cardiopulmonary findings New Medications: Mobic 75mg oral BID PRN Procedures Performed: none Results and Findings: Laboratory Tests 08/22/17 08/22/17 08/23/17 17:43 21:03 04:02 Troponin I Less than 0.017 Less than 0.017 Less than 0.017 Discharge Location: Home Disposition: Home self-care Condition: Stable Face to Face Encounter completed per CMS Guidelines: Yes Discharge Activity: Activity as tolerated Discharge Diet: General/regular food Referrals: Maria Del Carmen Aguilera DO [Primary Care Provider] - Problem Oriented Discharge Instructions to Patient/Family: Chest Wall Pain, [id number] Additional Patient Instructions (free text): Follow-up with Dr. Aguilera on Saturday, August 30 at 2:00 p.m. Prescriptions (Any new or edited meds): Acetaminophen [Tylenol Arthritis] 650 mg PO QID PRN #60 tablet.er PRN Reason: Pain Complete Home Medications List: Complete Home Medication List: Aspirin [Aspirin Enteric Coated] 81 mg PO DAILY tablet. 09/12/16 Acetaminophen [Tylenol Arthritis] 650 mg PO QID PRN #60 tablet.er 08/23/17
[2017-08-23] MEDS ORDERED: ASPIRIN 81 MG TABLET.DR PO SCH (09:00)
[2017-08-23 09:07] VITALS: BP 136/87
== END 2017-08-23 09:16 | disposition home or self-care (01) ==
LOC: ER 17:22 → MS 18:35
PROVIDERS: ADMIT Internal Medicine; ATTEND Internal Medicine
DX: R51 Headache; R07.9 Chest pain, unspecified; I47.1 Supraventricular tachycardia; M94.0 Chondrocostal junction syndrome [Tietze]
CPT/HCPCS: 36415; 71020; 71046; 80053; 80061; 84484; 85025; 85379; 85610; 85730; 93005; 96360; 99284; G0378